=== PATIENT | female | born 1940 | race Hispanic/Latino ===

== ENCOUNTER 2022-07-02 19:02 | Emergency (ER) | payer OTHER ==
[~2022-07-02] VITALS: Ht 160 cm; Wt 54.4 kg
[2022-07-02] MEDS ORDERED: ONDANSETRON HCL INJ 2MG/ML 2ML 2 MG/ML VIAL IV STA (19:17)
[2022-07-02] MEDS ORDERED: ASPIRIN 81 MG CHEW TAB PO ONE (19:30)
[2022-07-02] MEDS ORDERED: SODIUM CHLORIDE FLUSH 10 ML SYR IV PRN (19:30)
[2022-07-02 19:45] LABS: BASOPHILS # (AUTO) 0.1 (0.0-0.1); BASOPHILS % 0.7 % (0.0-1.0); EOSINOPHILS # (AUTO) 0.3 (0.0-0.4); EOSINOPHILS % 2.5 % (0.0-6.0); HEMATOCRIT 36.9 % (34.2-44.1); HEMOGLOBIN 11.9 g/dL (12.0-16.0); LYMPHOCYTES # (AUTO) 1.7 (1.0-3.2); LYMPHOCYTES % 16.1 % (18.0-39.1); MEAN CORPUSCULAR HEMOGLOBIN 32.4 pg (28-32); MEAN CORPUSCULAR HGB CONC 32.2 g/dL (31-35); MEAN CORPUSCULAR VOLUME 100.5 fL (81-99); MONOCYTES # (AUTO) 0.4 (0.2-0.8); MONOCYTES % 3.8 % (4.4-11.3); NEUTROPHILS # (AUTO) 8.1 (2.1-6.9); NEUTROPHILS % 76.5 % (38.7-80.0); PLATELET COUNT 237 x10e3/uL (140-360); RED BLOOD COUNT 3.67 x10e6/uL (3.6-5.1)
[2022-07-02 20:04] LABS: ALBUMIN 3.6 g/dL (3.5-5.0); ALBUMIN/GLOBULIN RATIO 0.9 (0.8-2.0); ANION GAP 15.9 mmol/L (8-16); CALCIUM 10.1 mg/dL (8.4-10.2); CREATININE, SERUM 0.85 mg/dL (0.57-1.11); POTASSIUM 3.9 mmol/L (3.5-5.1)
[2022-07-02] MEDS ORDERED: ASPIRIN 81 MG ENTERIC COATED PO ONE (20:23)
[2022-07-02] MEDS ORDERED: ASPIRIN 81 MG CHEW TAB ONE (20:29)
[2022-07-02] MEDS ORDERED: IOPAMIDOL 370 MG/ML 100 ML INFUS..BTL INJ ONE (21:12)
[2022-07-02 22:00] VITALS: O2SAT 95
== END 2022-07-02 23:40 | disposition home or self-care (01) ==
LOC: ER 19:09
DX: R07.9 Chest pain, unspecified (principal); R79.1 Abnormal coagulation profile; Z20.822 Contact with and (suspected) exposure to COVID-19
CPT/HCPCS: 36415; 71046; 71260; 80053; 83880; 84484; 85025; 85379; 87400; 93005; 94760; 99284; J2405; Q9967; U0002

== ENCOUNTER 2024-10-20 20:31 | Emergency (ER) | payer MEDICARE, OTHER ==
[~2024-10-20] VITALS: Ht 160 cm; Wt 54.4 kg
[2024-10-20 20:55] VITALS: TEMP 98.7
[2024-10-20] MEDS ORDERED: SODIUM CHLORIDE FLUSH 10 ML SYR IV PRN (21:00)
[2024-10-20] MEDS: SODIUM CHLORIDE 0.9% 1000ML 1,000 ML IV ONE (21:05)
[2024-10-20 22:22] LABS: BASOPHILS % 0.6 % (0.0-1.0); EOSINOPHILS % 3.9 % (0.0-6.0); LYMPHOCYTES % 22.0 % (18.0-39.1); MONOCYTES % 6.5 % (4.4-11.3); NEUTROPHILS % 66.8 % (38.7-80.0); RED CELL DISTRIBUTION WIDTH 17.0 % (11.7-14.4)
[2024-10-20 22:35] LABS: EST GLOMERULAR FILTRATION RATE 86.0 ML/MIN (>=60)
[2024-10-20 23:08] LABS: LEUKOCYTE ESTERASE ,URINE TRACE (NEGATIVE); PROTEIN,URINE DIPSTICK NEGATIVE (NEGATIVE); URINE UROBILINOGEN 4.0 mg/dL (0.2 - 1)
[2024-10-20 23:28] LABS: WBC,URINE (MAN) 21-50 /HPF (0-5)
[2024-10-20 23:29] LABS: EPITHELIAL CELLS,URINE MODERATE /LPF
[2024-10-20] MEDS ORDERED: CEPHALEXIN500 MG PO (23:54)
[2024-10-21] VITALS: PULSE 79; RESP 18
[2024-10-21 00:09] VITALS: BP 118/46; PULSE 78; RESP 18; TEMP 98.8; O2SAT 99
[2024-10-21 04:37] LABS: EOSINOPHILS % (MANUAL) 2 % (0-7); LYMPHOCYTES % (MANUAL) 17 % (19-48); MONOCYTES % (MANUAL) 4 % (3.4-9.0); NEUTROPHILS % (MANUAL) 77 % (40-74)
[2024-10-21 04:38] LABS: ELLIPTOCYTE, RBC SLIGHT; RBC MORPHOLOGY COMMENT ABNORMAL
[2024-10-21 04:39] LABS: PLATELET ESTIMATE ADEQUATE; PLATELET MORPHOLOGY COMMENT NORMAL
== END 2024-10-21 00:35 | disposition home or self-care (01) ==
LOC: ER 20:37
DX: I95.9 Hypotension, unspecified (principal); N39.0 Urinary tract infection, site not specified; R42 Dizziness and giddiness; R53.81 Other malaise; R53.83 Other fatigue; M19.09 Primary osteoarthritis, other specified site; R94.31 Abnormal electrocardiogram [ECG] [EKG]
CPT/HCPCS: 36415; 80053; 81001; 84484; 85025; 87086; 87186; 93005; 94760; 99284; J0696; J7030